=== PATIENT | female | born 1985 | race Caucasian/White ===

== ENCOUNTER 2021-07-04 20:46 | Emergency (ER) | payer MEDICAID ==
[~2021-07-04] VITALS: Ht 160 cm; Wt 50.0 kg
[2021-07-04 20:53] VITALS: BP 136/88
[2021-07-04] MEDS ORDERED: HydrOXYzine PAMOATE 25 MG CAPSULE PO ONE (22:00)
[2021-07-04] MEDS ORDERED: HYDR-4527 PO (22:05)
[2021-07-04] MEDS ORDERED: TRIA15CR49 TP (22:05)
[2021-07-04] MEDS ORDERED: ACYC-138 PO (22:09)
== END 2021-07-04 22:25 | disposition home or self-care (01) ==
LOC: EDBD 20:48 → EMS 20:48
DX: B00.1 Herpesviral vesicular dermatitis (principal); L25.9 Unspecified contact dermatitis, unspecified cause
CPT/HCPCS: 99283

== ENCOUNTER 2021-08-13 13:27 | Emergency (ER) | payer SELFPAY ==
[~2021-08-13] VITALS: Ht 160 cm; Wt 50.0 kg
[~2021-08-13 13:27] MED LIST: ACYC-138 PO; HYDR-4527 PO; TRIA15CR49 TP
[2021-08-13 14:24] LABS: BASOPHILS % (AUTO) 0.7 % (0.0-2.0); EOSINOPHILS % (AUTO) 0.9 % (1.0-6.0); HEMATOCRIT 38.1 % (36-46); HEMOGLOBIN 12.7 g/dL (12.0-16.0); LYMPHOCYTES # (AUTO) 1.4 K/uL (1.0-4.8); LYMPHOCYTES % (AUTO) 15.9 % (22.0-44.0); MEAN CORPUSCULAR HEMOGLOBIN 28.9 pg (26.0-34.0); MEAN CORPUSCULAR HGB CONC 33.3 G/dL (31.0-37.0); MEAN CORPUSCULAR VOLUME 87 fL (80-100); MONOCYTES # (AUTO) 0.6 K/uL (0.1-1.0); MONOCYTES % (AUTO) 6.7 % (2.0-9.0); NEUTROPHILS # (AUTO) 6.8 K/uL (1.8-7.7); NEUTROPHILS % (AUTO) 75.8 % (40.0-70.0); PLATELET COUNT (AUTO) 247 K/uL (150-450); RED BLOOD CELL COUNT(AUTO) 4.38 MIL/uL (4.00-5.20); RED CELL DISTRIBUTION WIDTH 14.2 % (11.5-14.5)
[2021-08-13 14:33] LABS: ANION GAP 8 mmol/L (8-16); CALCIUM, TOTAL 9.1 mg/dL (8.8-10.5); CARBON DIOXIDE 28 mmol/L (22-29); CHLORIDE 101 mmol/L (98-107); CREATININE 0.54 mg/dL (0.60-1.30); GLUCOSE,RANDOM 78 mg/dL (70-110); POTASSIUM 3.9 mmol/L (3.5-5.1); SODIUM SERUM 137 mmol/L (136-145); UREA NITROGEN, BLOOD 9 mg/dL (7-18)
[2021-08-13 14:37] LABS: GLOMERULAR FILTR. RATE CALC > 60 mL/min (>60)
[2021-08-13 14:46] LABS: APPEARANCE,URINE HAZY (CLEAR); BILIRUBIN,URINE NEGATIVE (NEGATIVE); GLUCOSE, URINE (UA) NEGATIVE (NEGATIVE); KETONES,URINE NEGATIVE (NEGATIVE); LEUKOCYTE ESTERASE ,URINE NEGATIVE (NEGATIVE); NITRATE,URINE NEGATIVE (NEGATIVE); OCCULT BLOOD,URINE NEGATIVE (NEGATIVE); PH,URINE 7.5 (5.0-8.0); PROTEIN,URINE TRACE mg/dL (NEGATIVE); UROBILINOGEN,URINE <=1.0 mg/dL (<=1.0)
[2021-08-13 15:01] LABS: RBC,URINE None Seen /HPF (0-2)
[2021-08-13 15:02] LABS: BACTERIA,URINE Few /HPF (None Seen); SQUAMOUS EPITHELIAL CELL,UR Moderate /LPF (None Seen); WBC,URINE 0-2 /HPF (0-5)
[2021-08-13 15:04] LABS: ALANINE AMINOTRANSFERASE 24 U/L (12-78); ALBUMIN 3.9 g/dL (3.4-5.0); ALKALINE PHOSPHATASE 43 U/L (46-116); ASPARTATE AMINOTRANSFERASE 12 U/L (15-37); BILIRUBIN,TOTAL 0.6 mg/dL (0.1-1.0); HCG,QUANTITATIVE 73233 mIU/mL (0-6); LIPASE 62 U/L (73-393); TOTAL PROTEIN, SERUM 7.5 g/dL (6.4-8.2)
[2021-08-13] MEDS ORDERED: SODIUM CHLORIDE 0.9% 1,000 ML IV ONE (15:15)
[2021-08-13] MEDS ORDERED: METOCLOPRAMIDE HCL 10 MG TABLET PO ONE (16:00)
[2021-08-13] MEDS ORDERED: PNV1TABL77 PO (16:13)
[2021-08-13 16:28] VITALS: BP 108/71
== END 2021-08-13 16:31 | disposition home or self-care (01) ==
LOC: EMS 13:27
DX: O21.8 Other vomiting complicating pregnancy (principal); Z88.0 Allergy status to penicillin; Z88.1 Allergy status to other antibiotic agents; Z3A.01 Less than 8 weeks gestation of pregnancy
CPT/HCPCS: 80053; 81001; 83690; 84702; 85025; 96360; 99283; 36415-L1; 36415-TC

== ENCOUNTER 2021-08-24 12:09 | Emergency (ER) | payer MEDICAID ==
[~2021-08-24] VITALS: Ht 160 cm; Wt 50.0 kg
[~2021-08-24 12:09] MED LIST changes: -ACYC-138 PO; -HYDR-4527 PO; +PNV1TABL77 PO; -TRIA15CR49 TP
[2021-08-24 13:31] LABS: BASOPHILS % (AUTO) 0.4 % (0.0-2.0); EOSINOPHILS % (AUTO) 0.8 % (1.0-6.0); HEMATOCRIT 37.4 % (36-46); HEMOGLOBIN 12.5 g/dL (12.0-16.0); LYMPHOCYTES # (AUTO) 1.1 K/uL (1.0-4.8); LYMPHOCYTES % (AUTO) 13.5 % (22.0-44.0); MEAN CORPUSCULAR HEMOGLOBIN 28.8 pg (26.0-34.0); MEAN CORPUSCULAR HGB CONC 33.3 G/dL (31.0-37.0); MEAN CORPUSCULAR VOLUME 86 fL (80-100); MONOCYTES # (AUTO) 0.5 K/uL (0.1-1.0); MONOCYTES % (AUTO) 6.1 % (2.0-9.0); NEUTROPHILS # (AUTO) 6.6 K/uL (1.8-7.7); NEUTROPHILS % (AUTO) 79.2 % (40.0-70.0); PLATELET COUNT (AUTO) 256 K/uL (150-450); RED BLOOD CELL COUNT(AUTO) 4.33 MIL/uL (4.00-5.20); RED CELL DISTRIBUTION WIDTH 14.4 % (11.5-14.5)
[2021-08-24 13:40] LABS: ANION GAP 7 mmol/L (8-16); CALCIUM, TOTAL 9.4 mg/dL (8.8-10.5); CARBON DIOXIDE 27 mmol/L (22-29); CHLORIDE 100 mmol/L (98-107); CREATININE 0.47 mg/dL (0.60-1.30); GLUCOSE,RANDOM 93 mg/dL (70-110); SODIUM SERUM 134 mmol/L (136-145); UREA NITROGEN, BLOOD 8 mg/dL (7-18)
[2021-08-24 13:41] LABS: GLOMERULAR FILTR. RATE CALC > 60 mL/min (>60)
[2021-08-24 14:07] LABS: ALANINE AMINOTRANSFERASE 26 U/L (12-78); ALBUMIN 3.6 g/dL (3.4-5.0); ALKALINE PHOSPHATASE 39 U/L (46-116); ASPARTATE AMINOTRANSFERASE 14 U/L (15-37); BILIRUBIN,TOTAL 0.4 mg/dL (0.1-1.0); HCG,QUANTITATIVE 164636 mIU/mL (0-6); TOTAL PROTEIN, SERUM 7.4 g/dL (6.4-8.2)
[2021-08-24 14:15] VITALS: BP 123/84
== END 2021-08-24 15:00 | disposition home or self-care (01) ==
LOC: EMS 12:09
DX: O20.0 Threatened abortion (principal); Z88.0 Allergy status to penicillin; Z88.1 Allergy status to other antibiotic agents; Z79.899 Other long term (current) drug therapy; Z3A.08 8 weeks gestation of pregnancy
CPT/HCPCS: 76801; 76817; 80053; 84702; 85025; 86901; 99284

== ENCOUNTER 2023-10-29 12:11 | Emergency (ER) | payer MEDICAID ==
[~2023-10-29] VITALS: Ht 170.2 cm; Wt 60.0 kg
[2023-10-29 12:30] VITALS: BP 122/74; PULSE 95; RESP 18; TEMP 98; O2SAT 100
== END 2023-10-29 13:05 | disposition home or self-care (01) ==
LOC: EMS 12:11
DX: F41.0 Panic disorder [episodic paroxysmal anxiety] (principal)
CPT/HCPCS: 99281; Z7502